=== PATIENT | female | born 2000 | race Caucasian/White ===

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

== ENCOUNTER → 2020-02-17 | Emergency (ER) | payer OTHER ==
[~2020-02-17] VITALS: Ht 165.1 cm; Wt 60.8 kg
[2020-02-17 13:15] VITALS: BP 145/84
--- NOTE | 2020-02-17 13:20 | NUR ---
Pt eloped from facility
== END | disposition left against medical advice (07) ==
LOC: ER 13:12
DX: Z53.21 Procedure and treatment not carried out due to patient leaving prior to being seen by health care provider (principal); F41.9 Anxiety disorder, unspecified; R51.9 Headache, unspecified

== ENCOUNTER 2020-12-18 09:28 | Emergency (ER) | payer OTHER ==
[~2020-12-18] VITALS: Ht 152.4 cm; Wt 61.8 kg
--- NOTE | 2020-12-18 09:55 | NUR ---
PT CAME TO ER C/O LOWER ABDOMINAL PAIN, N/V X 1 MONTH, CHILLS AND SORE THROAT X LAST NIGHT. PAIN IS SHARP 9/10, EXACERBATED BY TWISTING MOVEMENTS. DENIES FEVER. ADMITS FATIGUE, WEAKNESS. PT IS CURRENTLY AND GAVE A LIVE 4 MONTHS AGO. A&OX4, AMBULATORY, PULSES 2+ BILATERALLY, ABDOMEN IS SOFT, TENDER TO PALPATION. ON MONITOR, V/S STABLE
--- NOTE | 2020-12-18 09:55 | NUR ---
BIB FOR C/O ABDOMINAL PAIN AND CRAMPS 10/24, C/O SORE THROAT AND CHILLS SINCE LAST NIGHT. DENIES N/V. RESPIRATION REGULAR AND UNLABORED. WILL CONTINUE TO MONITOR THE PATIENT.
--- NOTE | 2020-12-18 10:13 | NUR ---
blood sample obtained and sent to lab
--- NOTE | 2020-12-18 10:13 | NUR ---
DR GRAYSON AT THE BEDSIDE
--- NOTE | 2020-12-18 10:28 | NUR ---
SHOT LIGHTER AT BEDSIDE
[2020-12-18 10:50] LABS: BASOPHILS % (AUTO) 0.2 % (0.0-2.0); EOSINOPHILS % (AUTO) 0.1 % (0.0-6.0); HEMATOCRIT 36 % (33-45); HEMOGLOBIN 11.8 g/dL (11.5-14.8); LYMPHOCYTES # (AUTO) 0.5 K/uL (0.8-4.8); LYMPHOCYTES % (AUTO) 4.8 % (20.0-44.0); MEAN CORPUSCULAR HGB CONC 33 g/dl (31.0-36.0); MEAN CORPUSCULAR VOLUME 80 fL (82-100); MONOCYTES # (AUTO) 0.5 K/uL (0.1-1.30); MONOCYTES % (AUTO) 5.7 % (2.0-12.0); NEUTROPHILS # (AUTO) 8.5 K/uL (1.8-8.9); NEUTROPHILS % (AUTO) 89.2 % (43.0-81.0); PLATELET COUNT (AUTO) 199 K/uL (150-450); RED BLOOD CELL COUNT(AUTO) 4.48 MIL/uL (4.0-5.2); WHITE BLOOD COUNT (AUTO) 9.5 K/uL (4.3-11.0)
[2020-12-18 10:54] LABS: CALCIUM, SERUM 8.5 mg/dL (8.5-10.1); CREATININE 0.7 mg/dL (0.6-1.3); POTASSIUM 3.3 mmol/L (3.5-5.1)
[2020-12-18 11:02] LABS: ALBUMIN 3.4 g/dL (3.4-5.0); BILIRUBIN,DIRECT 0.2 mg/dL (0.0-0.2); BILIRUBIN,TOTAL 0.7 mg/dL (0.2-1.0); TOTAL PROTEIN, SERUM 7.4 g/dL (6.4-8.2)
--- NOTE | 2020-12-18 12:03 | NUR ---
IV removed. Catheter intact and site benign. Pressure and 4x4 applied to site. No bleeding noted.
--- NOTE | 2020-12-18 12:19 | NUR ---
COVID SAMPLE OBTAINED AND SENT TO LAB
[2020-12-18 13:38] VITALS: BP 103/59
--- NOTE | 2020-12-18 13:38 | NUR ---
The patient is alert and oriented x4. IV removed. Catheter intact and site benign. Pressure and 4x4 applied to site. No bleeding noted.Patient discharged to home in stable condition. Written and verbal after care instructions given. Patient verbalizes understanding of instruction.
== END 2020-12-18 13:39 | disposition home or self-care (01) ==
LOC: ER 09:37
DX: O26.892 Other specified pregnancy related conditions, second trimester (principal); Z3A.14 14 weeks gestation of pregnancy; R10.9 Unspecified abdominal pain; J02.9 Acute pharyngitis, unspecified; Z20.822 Contact with and (suspected) exposure to COVID-19
CPT/HCPCS: 36415; 76805; 80048; 80076; 83690; 84702; 84703; 85025; 87426; 99284; C9803